=== PATIENT | male | born 1950 | race Caucasian/White ===

== ENCOUNTER 2021-02-28 15:25 | Emergency (ER) | payer MEDICARE, SELFPAY ==
--- NOTE | ~2021-02-28 | CT_ITS ---
EXAMINATION: CT abdomen pelvis w con DATE: 02/28/2021 20:33 INDICATION: Left-sided abdominal pain for 3 days TECHNIQUE: Computed tomography (CT) of the abdomen and pelvis was performed with 100 cc Omnipaque 350 intravenous contrast. Automated exposure control and iterative reconstruction technique were employe d. Exam dose: 611.96 mGy-cm total exam DLP. COMPARISON: 02/19/2017 CT abdomen pelvis FINDINGS: Right lower lobe calcified pulmonary granuloma. There is discoid atelectasis and/or scarrin g at the lung bases. Normal heart size. No pericardial or pleural effusion. Status post gastric pull-through surgery; history of esophageal cancer. Multiple scattered hepatic cysts, the largest 2.5 cm. No bile duct or pancreatic duct dilatation. The gallbladder is present. No gallbladder wall thickening or pericholecystic fluid or fat stranding. No pancreatic mass lesion or calcification or pancreatic duct dilatation. Normal splenic size. Normal morphology of the adrenal glands. Multiple scattered bilateral renal cysts, largest measuring 1.6 cm. There is an approximately 5 x 9 mm left ureteral calculus at the L4-5 level with proximal moderate le ft hydroureteronephrosis. Scattered bilateral nonobstructing renal calculi, largest situated in the lower pole left kidney, ryann suring approximately 5.5 mm. There is scarring or possibly resection of the lower pole of the left kidney. There is moderate prostate enlargement and multiple prostate calcifications. The urinary bladder is u nremarkable. Bilateral fat-containing inguinal hernias. There is atherosclerotic calcification of the abdominal aorta and iliac arteries, without aneurysm. N o intraperitoneal or retroperitoneal or pelvic mass lesion or adenopathy or ascites. Normal appendix. There are some fluid distended jejunal segments measuring up to approximately 2.9 cm maximal diameter , which may represent mild adynamic ileus secondary to the left ureteral calculus; differential diagn osis includes less likely enteritis or partial mild small bowel obstruction. Diverticulosis of the colon; no CT evidence of diverticulitis. No bowel obstruction or intraperitonea l free air. Mild supraumbilical fat-containing ventral abdominal wall hernias. Hemangioma of T12 vertebral body. No suspicious osteolytic or osteoblastic lesions are identified. IMPRESSION: 5 x 9 mm left ureteral calculus at L4-5 level with proximal moderate left hydroureterone phrosis Scattered bilateral nonobstructing renal calculi Bilateral renal cysts Scarring or postsurgical change at the lower pole left kidney; recommend clinical correlation Scattered hepatic cysts Status post gastric pull-through surgery for history of esophageal cancer Diverticulosis of the colon; no CT evidence of diverticulitis Bilateral fat-containing inguinal hernias Reviewed, dictated and finalized at [facility]. Reviewed, dictated and finalized at [facility]. IMPRESSION: 5 x 9 mm left ureteral calculus at L4-5 level with proximal modera te left hydroureteronephrosis Scattered bilateral nonobstructing renal calculi Bilateral renal cysts Scarring or postsurgical change at the lower pole left kidney; recommend clinic al correlation Scattered hepatic cysts Status post gastric pull-through surgery for history of esophageal cancer Diverticulosis of the colon; no CT evidence of diverticulitis Bilateral fat-containing inguinal hernias
--- NOTE | ~2021-02-28 | XR_ITS ---
XR abdomen/kub 1V DATE: 02/28/2021 22:01 INDICATION: Kidney stone TECHNIQUE: AP projection, 2 views COMPARISON: 02/28/2021 CT abdomen pelvis FINDINGS: There is left hydronephrosis and hydroureter to the L4-5 level due to the left renal calcul us documented on 02/28/2021 CT abdomen pelvis examination shortly prior to this examination. No right hydroureteronephrosis. The urinary bladder appears unremarkable. No bowel obstruction. The psoas shadows are intact. Postoperative changes of the lower thorax and upper abdomen. IMPRESSION: Left ureteral partial obstruction at L4-5 due to calculus Reviewed, dictated and finalized at [facility] Reviewed, dictated and finalized at [facility].
[2021-02-28 15:29] VITALS: BP 120/67; PULSE 69; RESP 18; TEMP 36.6; O2SAT 99
[2021-02-28 15:48] LABS: Basophils Percent Auto 0.3 % (0.2-1.2); Eosinophils Absolute Auto 0.1 K/mm3 (0-0.3); Eosinophils Percent Auto 0.4 % (0-4.4); Hematocrit 43.1 % (42.0-52.0); Hemoglobin 13.9 g/dL (14.0-18.0); Immature Granulocyte Absolute 0.05 K/mm3 (0.00-0.031); Immature Granulocyte Percent A 0.3 % (0-0.5); Lymphocytes Absolute Auto 1.01 K/mm3 (0.9-3.2); Mean Corpuscular HGB Conc 32.3 g/dl (32-36); Mean Corpuscular Hemoglobin 30.2 pg (26-34); Mean Corpuscular Volume 93.7 fl (80-100); Mean Platelet Volume 10.7 fl (7.4-10.4); Monocytes Percent Auto 6.6 % (2.6-8.5); Neutrophils Absolute Auto 12.4 K/mm3 (1.3-6.7); Neutrophils Percent Auto 85.4 % (45.5-73.1); Platelet Count Result 224 k/mm3 (150-375); Red Cell Distribution Width 12.8 % (11.5-14.5); White Blood Count 14.5 K/mm3 (4.5-10.0)
[2021-02-28 16:00] LABS: Alanine Aminotransferase 25 U/L (4-50); Albumin Level 4.3 g/dL (3.5-5.1); Alkaline Phosphatase 134 U/L (38-126); Anion Gap 10 mmol/L (8-16); Aspartate Amino Transferase 29 U/L (17-59); Bilirubin,Total 0.6 mg/dL (0.2-1.3); Blood Urea Nitrogen 17 mg/dL (9-20); Calcium 9.7 mg/dL (8.4-10.2); Carbon Dioxide 22 mmol/L (22-30); Chloride 100 mmol/L (98-107); Estimated CRCL calculation 40 ml/min; Estimated Glomerular Filt Rate 43; Glucose 129 mg/dL (65-110); Lipase 129 U/L (23-300); Sodium 132 mmol/L (137-145)
[2021-02-28 18:30] VITALS: BP 137/80; PULSE 70; O2SAT 94
[2021-02-28 19:12] LABS: Add Urine Microscopic? YES; Appearance Urine Clear (Clear); Bilirubin Urine Negative (Negative); Blood Urine 1+ (Negative); Color Urine Yellow (Yellow); Glucose Urine UA Negative (Negative); Ketones Urine 1+ mg/dL (Negative); Leukocyte Esterase Ur Negative LEU/UL (Negative); Nitrate Urine Negative (Negative); Protein Urine 1+ mg/dL (Negative); Specific Grav Ur 1.024 (1.001-1.035); Urobilinogen Urine Negative mg/dL (<2.0)
[2021-02-28 19:35] VITALS: BP 151/90; PULSE 75; RESP 18; O2SAT 99
[2021-02-28 19:46] LABS: Calcium Oxalate Crystals Urine Present /hpf
[2021-02-28 19:47] LABS: RBC Urine 0-2 /hpf (0-2); WBC Urine 0-3 /hpf
[2021-02-28 20:44] VITALS: BP 121/81; PULSE 63; RESP 15; O2SAT 99
--- NOTE | 2021-02-28 20:56 | ED.GENADULT ---
HPI - General Adult General Chief complaint: Abdominal Pain Stated complaint: poss kidney stone Time Seen by Provider: 02/28/21 19:40 Source: patient History of Present Illness HPI narrative: Patient is a 70 y/o male complaining of intermittent left upper abdominal pain starting 2 days ago. He describes his pain as a cramping pain and rates it as 5-7/10 when it hits. There is no known alleviating or exacerbating factor. His pain radiates to his left pain. He has no pain at this time. He has some nausea, but no vomiting or diarrhea. He has no dysuria or hematuria. Related Data Home Medications Medication Instructions Recorded Confirmed atorvastatin 02/28/21 metoprolol succinate PO 02/28/21 quinapril mg 02/28/21 Allergies Allergy/AdvReac Type Severity Reaction Status Date / Time No Known Allergies Allergy Verified 02/28/21 19:38 Review of Systems Constitutional: Constitutional: Denies chills, Denies fever(s), Denies headache(s) and Denies weakness Eyes: Eyes: Denies blurry vision ENT: Denies headache(s) and Denies neck pain Cardiovascular: Cardiovascular: Denies chest pain and Denies dyspnea Respiratory: Respiratory: Denies cough and Denies dyspnea Gastrointestinal: Gastrointestinal: Reports abdominal pain, Denies diarrhea, Reports nausea and Denies vomiting Genitourinary: Genitourinary: Denies hematuria and Denies dysuria Musculoskeletal: Musculoskeletal: Reports back pain and Denies neck pain Neurologic: Denies headache(s) and Denies weakness PMFSH Social History Social History Gender identity (if verbalized by the patient): Male Exam Const: General: no acute distress and well developed Orientation/consciousness: oriented to person, oriented to place, oriented to time and patient oriented x3 HENMT: Head: normocephalic Ears: external ears normal General nose exam: Normal external nose present Eyes: General: appearance normal, both eyes and all related structures Conjunctivae: conjunctivae normal Neck: Neck: normal visual inspection and full ROM Chest: Chest palpation & inspection: normal inspection of the chest and no tenderness Resp: Effort & Inspection: normal respiratory effort Auscultation: clear to auscultation bilaterally Cardio: Rate: regular rate Rhythm: regular rhythm GI: GI Palp: No abdominal tenderness and Yes Soft to palpation Skin: General skin exam: normal color and turgor normal Neuro: General: oriented to person, oriented to place, oriented to time and patient oriented x3 Cognition (Neuro): normal cognition Extrem: General: normal to inspection, full ROM and no pedal edema Psych: Appearance: grossly normal Mental Status: mental status grossly normal Affect: normal affect Course Reevaluation(s) Reevaluation #1: Rechecked. Patient feels well. He states that he has no pain at this time. Date: 02/28/21 Time: 21:46 Consultations Consultation #1: Discussed with Dr. Campos, who agrees with plan for discharge. He recommends empirical antibiotic for 3 days for elevated WBC. Date: 02/28/21 Time: 21:54 Vital Signs Vital signs: Vital Signs Temperature 36.6 C 02/28/21 15:29 Pulse Rate 69 02/28/21 15:29 Respiratory Rate 18 02/28/21 15:29 Blood Pressure 120/67 02/28/21 15:29 Pulse Oximetry 99 02/28/21 15:29 Temperature 36.6 C 02/28/21 15:29 Pulse Rate 71 02/28/21 22:35 Respiratory Rate 16 02/28/21 22:35 Blood Pressure 143/71 H 02/28/21 22:35 Pulse Oximetry 100 02/28/21 22:35 Medical Decision Making Vital Signs Vital Signs: Vital Signs Temperature 36.6 C 02/28/21 15:29 Pulse Rate 69 02/28/21 15:29 Respiratory Rate 18 02/28/21 15:29 Blood Pressure 120/67 02/28/21 15:29 Pulse Oximetry 99 02/28/21 15:29 Temperature 36.6 C 02/28/21 15:29 Pulse Rate 71 02/28/21 22:35 Respiratory Rate 16 02/28/21 22:35 Blood Pressure 143/71 H 02/28/21 22:35 Pulse Oximetry 100 02/28/21 22:35 Lab Data
[2021-02-28] MEDS: HYDROcodone/acetaminophen (*CRX) 5-325 MG TABLET 1 TAB PO (22:32)
[2021-02-28 22:35] VITALS: BP 143/71; PULSE 71; RESP 16; O2SAT 100
== END 2021-02-28 22:37 | disposition home or self-care (01) ==
PROVIDERS: Emergency Medicine; Emergency Provider Emergency Medicine; PCP Family Medicine
DX: N13.2 Hydronephrosis with renal and ureteral calculous obstruction (principal); N18.9 Chronic kidney disease, unspecified; Z85.01 Personal history of malignant neoplasm of esophagus; N28.1 Cyst of kidney, acquired; K76.89 Other specified diseases of liver; K57.90 Diverticulosis of intestine, part unspecified, without perforation or abscess without bleeding; K40.90 Unilateral inguinal hernia, without obstruction or gangrene, not specified as recurrent
CPT/HCPCS: 36415; 74018; 74177; 80053; 81001; 83690; 85025; 99284; A9270; Q9967

== ENCOUNTER 2021-03-08 12:10 | Outpatient (CLI) | payer MEDICARE, SELFPAY ==
--- NOTE | ~2021-03-08 | XR_ITS ---
EXAMINATION: XR abdomen/kub 1V EXAM DATE: 03/08/2021 12:26 INDICATION: Kidney stones, left flank pain. History esophageal cancer. TECHNIQUE: Frontal projection(s) of the abdomen for interpretation. Comparison is made to prior exami nation from 02/28/2021. FINDINGS: Previous exam demonstrated mild to moderate left hydroureteronephrosis to the pelvic inlet . There is a density projecting over the left side of the sacrum, uncertain whether or not this is th e stone previously identified on CT. Measures about 5 mm. Similar sized density projecting over lower pole of the left kidney. Moderate amount of colonic stool, nonobstructive bowel gas pattern. The saundra inal surgical clips. IMPRESSION: 1. Left nephrolithiasis. 2. Possible identification left mid ureteral stone. Reviewed, dictated and finalized at location [facility].
== END 2021-03-08 12:11 | disposition home or self-care (01) ==
PROVIDERS: PCP Family Medicine; Visit Provider Urology
DX: N20.0 Calculus of kidney (principal); C15.9 Malignant neoplasm of esophagus, unspecified; R10.9 Unspecified abdominal pain
CPT/HCPCS: 74018

== ENCOUNTER 2021-03-08 13:37 | Day surgery (SDC) | payer MEDICARE, SELFPAY ==
[2021-03-08] VITALS (15 sets, daily range): BP systolic 116–148; BP diastolic 60–82; PULSE 58–90; RESP 12–22; TEMP 35.5–36.7; O2SAT 98–100
--- NOTE | ~2021-03-08 | CT_ITS ---
EXAMINATION: CT abdomen pelvis wo con DATE: 03/08/2021 16:11 INDICATION: Left flank pain. TECHNIQUE: Computed tomography (CT) of the abdomen and pelvis was performed without intravenous contr ast. Automated exposure control and iterative reconstruction technique were employed. The dose-length product was 183.03 mGy-cm. COMPARISON: CT abdomen and pelvis 02/28/2021 FINDINGS: The visualized portions of the lung bases demonstrate mild atelectasis. No pleural effusion . There are changes of esophagectomy and gastric pull-through procedure. There is a 2.6 cm cyst in th e liver. Calcifications in the spleen are consistent with old granulomatous disease. The gallbladder, spleen, and pancreas are normal. There is cortical thinning of the kidneys. There are two 1-[address] aliya in right kidney. There are cysts in left kidney measuring up to 16 mm. There are [address] ones in left kidney. There is mild left hydronephrosis and hydroureter. There is a 6 mm stone in left ureter where it crosses the iliac vessels. There is diverticulosis of the colon without evidence of diverticulitis. The appendix is normal. There are no dilated loops of bowel. There are no pathologica lly enlarged lymph nodes. There is no free intraperitoneal fluid. There is a right inguinal hernia co ntaining fat. There is a hemangioma in T12 vertebral body. There is mild thoracolumbar spondylosis. IMPRESSION: 1. 6 mm stone in mid left ureter with mild left hydronephrosis and proximal hydroureter. 2. Bilateral nonobstructing kidney stones. Reviewed, dictated and finalized at location [facility]. IMPRESSION: 1. 6 mm stone in mid left ureter with mild left hydronephrosis and proximal hyd roureter. 2. Bilateral nonobstructing kidney stones.
--- NOTE | 2021-03-08 14:04 | ECG_ITS ---
Measurements Intervals Whittaker Rate: 71 P: 67 IN: 156 QRS: 20 QRSD: 104 T: 35 QT: 397 QTc: 432 Interpretive Statements SINUS RHYTHM DELAYED PRECORDIAL R/S TRANSITION VOLTAGE CRITERIA FOR LVH BORDERLINE ST ABNORMALITY- INFERIOR LEADS BORDERLINE ECG Electronically Signed On 03-08-2021 16:37:02 CDT by Charlie Cervantes D.O.
[2021-03-08 14:17] LABS: Basophils Absolute Auto 0.1 K/mm3 (0.0-0.1); Basophils Percent Auto 0.4 % (0.2-1.2); Eosinophils Percent Auto 0.1 % (0-4.4); Hematocrit 44.3 % (42.0-52.0); Hemoglobin 14.6 g/dL (14.0-18.0); Immature Granulocyte Absolute 0.07 K/mm3 (0.00-0.031); Immature Granulocyte Percent A 0.5 % (0-0.5); Lymphocytes Absolute Auto 0.63 K/mm3 (0.9-3.2); Lymphocytes Percent Auto 4.6 % (18.3-44.2); Mean Corpuscular Hemoglobin 30.2 pg (26-34); Mean Corpuscular Volume 91.7 fl (80-100); Mean Platelet Volume 10.9 fl (7.4-10.4); Monocytes Absolute Auto 0.8 K/mm3 (0.1-0.6); Monocytes Percent Auto 5.9 % (2.6-8.5); Neutrophils Absolute Auto 12.2 K/mm3 (1.3-6.7); Neutrophils Percent Auto 88.5 % (45.5-73.1); Platelet Count Result 275 k/mm3 (150-375); Red Blood Count 4.83 M/mm3 (4.6-6.20); Red Cell Distribution Width 12.4 % (11.5-14.5); White Blood Count 13.8 K/mm3 (4.5-10.0)
[2021-03-08 14:34] LABS: Anion Gap 11 mmol/L (8-16); Blood Urea Nitrogen 20 mg/dL (9-20); Calcium 9.4 mg/dL (8.4-10.2); Carbon Dioxide 25 mmol/L (22-30); Chloride 99 mmol/L (98-107); Estimated Glomerular Filt Rate 46; Glucose 140 mg/dL (65-110); Potassium 4.5 mmol/L (3.4-5.0); Sodium 135 mmol/L (137-145)
[2021-03-08 14:36] LABS: Ovalocytes 1+ (NORMAL); Platelet Estimate Adequate (Adequate)
--- NOTE | 2021-03-08 16:01 | PC.NURSE ---
Called and spoke to Akosua in lab to add on CMP, [id number]
[2021-03-08] MEDS: HYDROmorphone HCL INJ (*CRX) 1 MG/ML SYR 0.5 MG IV PUSH (16:04)
[2021-03-08] MEDS: ONDANSETRON INJ 4 MG/2 ML VIAL IV PUSH (16:05)
--- NOTE | 2021-03-08 16:14 | ED.MALEGU ---
HPI - Male Genitourinary General Chief complaint: Urogenital-Male Stated complaint: kidney stone Time Seen by Provider: 03/08/21 15:48 Source: patient Mode of arrival: ambulatory Limitations: no limitations History of Present Illness HPI Narrative: Patient is 70 years old referred to the emergency room by his urologist for left flank pain started 11 days ago, was seen by urologist 2 hours ago, KUB was done, patient was scheduled for surgery today, came to the emergency room for pain management. Patient was retching, uncomfortable. Patient is fully vaccinated for COVID-19. The above symptom associated with nausea and intermittent vomiting. Patient had CT scan of the abdomen and pelvis 8 days ago which showed 5 x 9 mm left ureteral calculus at L4-5 level with proximal moderate left hydroureteronephrosis Related Data Home Medications Medication Instructions Recorded Confirmed atorvastatin 02/28/21 metoprolol succinate PO 02/28/21 quinapril mg 02/28/21 Allergies Allergy/AdvReac Type Severity Reaction Status Date / Time No Known Allergies Allergy Verified 02/28/21 19:38 Review of Systems Review of Systems: CONSTITUTIONAL: Denies fever, chills, or sweats. EYES: Denies visual changes, redness, or discharge. ENT: Denies rhinorrhea, congestion, sore throat, or otalgia. CARDIOVASCULAR: Denies chest pain, palpitations, or edema. RESPIRATORY: Denies cough or dyspnea. GASTROINTESTINAL: Denies abdominal pain, nausea, vomiting, or diarrhea. GENITOURINARY: Denies dysuria or hematuria. SKIN: Denies rash or itching. MUSCULOSKELETAL: Denies back pain, joint pain, or myalgia. NEUROLOGIC: Denies headache, numbness, or weakness. PSYCHIATRIC: Denies anxiety or depression. PMFSH Past Medical History Medical History Hyperlipidemia Hypertension Social History Social History Gender identity (if verbalized by the patient): Male Exam Narrative: General appearance: Well-developed, well-nourished Skin: Normal color Head: Normocephalic, nontraumatic Eyes: Clear conjunctiva ENT: Oropharynx normal, ears normal, nose normal Neck: Supple, nontender Chest and respiratory: Airway patent, no respiratory distress, no accessory muscle use Heart: Regular rate/rhythm Abdomen: Left flank tenderness Vascular: Normal peripheral pulses, normal capillary refill. Musculoskeletal: Normal range of motion, nontender back Neurologic: Alert and oriented ?3, ADMINISTRATIVE TECH is normal as tested, no gross motor deficit Course Course Emergency Course: Stable Vital Signs Vital signs: Vital Signs Temperature 35.5 C L 03/08/21 13:52 Pulse Rate 90 03/08/21 13:52 Respiratory Rate 22 H 03/08/21 13:52 Blood Pressure 142/75 H 03/08/21 13:52 Pulse Oximetry 100 03/08/21 13:52 Temperature 36.7 C 03/08/21 15:41 Pulse Rate 78 03/08/21 15:41 Respiratory Rate 18 03/08/21 15:41 Blood Pressure 126/76 03/08/21 15:41 Pulse Oximetry 99 03/08/21 15:41 MDM - Male Genitourinary MDM Narrative Medical decision making narrative: Patient is going to the OR for kidney stone removal Differential Diagnosis Differential diagnosis: Likely urinary tract infection Lab Data Result diagrams: 03/08/21 14:01 03/08/21 14:01 Labs: Lab Results 03/08/21 03/08/21 Range/Units 14:01 14:01 WBC 13.8 H (4.5-10.0) K/mm3 RBC 4.83 (4.6-6.20) M/mm3 Hgb 14.6 (14.0-18.0) g/dL Hct 44.3 (42.0-52.0) % MCV 91.7 (80-100) fl MCH 30.2 (26-34) pg MCHC 33.0 (32-36) g/dl RDW 12.4 (11.5-14.5) % Plt Count 275 (150-375)
--- NOTE | 2021-03-08 16:19 | P.HP_ITS ---
History of Present Illness History of Present Illness Consent: Risks, benefits, and alternatives have been discussed and questions answered. Patient agrees to proceed with procedure. Chief complaint: kidney stone Narrative: Melvin Quan is a 70 year old male with a known history of urolithiasis who was in the ER week ago with left renal colic. CT imaging revealed a obstructing 4-5 mm left mid ureteral calculus. He was discharged in did not seek follow-up until today when his pain recurred. A some in the office briefly where he was in severe pain with nausea and vomiting. After stabilization in the ER he is now scheduled for left endoscopic extraction of his left ureteral stone. Follow-up KUB imaging shows it is now on likely over the sacrum. Review of Systems Cardiovascular: Cardiovascular: Denies chest pain, Denies lightheadedness, Denies palpitations and Denies dyspnea Respiratory: Respiratory: Denies dyspnea Gastrointestinal: Gastrointestinal: Denies diarrhea, Denies nausea and Denies vomiting Genitourinary: Genitourinary: Denies hematuria and Denies dysuria Endocrine: Endocrine: Denies palpitations PMF Past Medical History Medical History Hyperlipidemia Hypertension Social History Social History Gender identity (if verbalized by the patient): Male Meds Home Medications and Allergies Home Medications Medication Instructions Recorded Confirmed Type atorvastatin 02/28/21 History ciprofloxacin HCl 500 mg PO Q12H #6 tablet 02/28/21 Rx hydrocodone-acetaminophen 1 tablet PO Q8H PRN #15 tablet 02/28/21 Rx metoprolol succinate PO 02/28/21 History quinapril mg 02/28/21 History tamsulosin [Flomax] 0.4 mg PO DAILY #10 cap 02/28/21 Rx Allergies Allergy/AdvReac Type Severity Reaction Status Date / Time No Known Allergies Allergy Verified 02/28/21 19:38 Vital Signs Vital Signs - 24 hr 03/08/21 13:52 03/08/21 15:25 03/08/21 15:26 Temperature 96 F L Pulse Rate 90 Respiratory Rate 22 H Blood Pressure 142/75 H 148/81 H Pulse Oximetry 100 98 03/08/21 15:30 03/08/21 15:32 03/08/21 15:41 Temperature 98.0 F Pulse Rate 78 Respiratory Rate 18 Blood Pressure 121/60 126/76 Pulse Oximetry 100 99 99 Exam Const: General: no acute distress Resp: Effort & Inspection: normal respiratory effort GI: Inspection: non-distended GI Palp: No abdominal tenderness and No Guarding due to palpation present (GI) Auscultation: normal bowel sounds Assessment and Plan Assessment and plan (1) Ureterolithiasis: Code(s): N20.1 - Calculus of ureter Status: Acute Assessment and Plan: * Cystoscopy, left ureteroscopy with stone extraction, possible laser lithotripsy and possible stent placement
--- NOTE | 2021-03-08 16:32 | WPDHPUPDATE1 ---
History and Physical Update Update Date/Time: 03/08/21 16:32 History and Physical has been reviewed, including an updated exam of the patient. There are NO changes in the patient's condition. Risks, benefits, and alternatives have been discussed and questions answered. Patient agrees to proceed with procedure.
--- NOTE | 2021-03-08 16:41 | WPDANESEPPF ---
Anes - Initial Pre Proc Eval Procedure: Operation Date: 03/08/21 15:00 Proposed Procedures p Cystoscopy, Left Uteroscopy, Left Retrograde Pyelogram, Left Stone Extraction, Possible Left Stent Placement, - John Barry MD s Possible Holmium Laser Procedure - John Barry MD Date/Time: 03/08/21 16:41 Surgeon: John Barry MD Pre Op Diagnosis: kidney stone Patient Data Age: 70 Gender: M Height: Weight: Last Vital Signs Temp 36.7 C 03/08/21 15:41 Pulse 72 03/08/21 16:33 Resp 18 03/08/21 16:33 BP 142/78 H 03/08/21 16:33 Pulse Ox 98 03/08/21 16:33 Allergies Allergy/AdvReac Type Severity Reaction Status Date / Time No Known Allergies Allergy Verified 02/28/21 19:38 Home Medications Medication Instructions Recorded Confirmed Type atorvastatin 02/28/21 History ciprofloxacin HCl 500 mg PO Q12H #6 tablet 02/28/21 Rx hydrocodone-acetaminophen 1 tablet PO Q8H PRN #15 tablet 02/28/21 Rx metoprolol succinate PO 02/28/21 History quinapril mg 02/28/21 History tamsulosin [Flomax] 0.4 mg PO DAILY #10 cap 02/28/21 Rx Laboratory Tests 03/08/21 03/08/21 14:01 14:01 WBC 13.8 K/mm3 H K/mm3 (4.5-10.0) RBC 4.83 M/mm3 M/mm3 (4.6-6.20) Hgb 14.6 g/dL g/dL (14.0-18.0) Hct 44.3 % % (42.0-52.0) MCV 91.7 fl fl (80-100) MCH 30.2 pg pg (26-34) MCHC 33.0 g/dl g/dl (32-36) RDW 12.4 % % (11.5-14.5) Plt Count 275 k/mm3 k/mm3 (150-375) MPV 10.9 fl H fl (7.4-10.4) Immature Gran % (Auto) 0.5 % % (0-0.5) Neut % (Auto) 88.5 % H % (45.5-73.1) Lymph % (Auto) 4.6 % L % (18.3-44.2) Coos % (Auto) 5.9 % % (2.6-8.5) Eos % (Auto) 0.1 % % (0-4.4) Baso % (Auto) 0.4 % % (0.2-1.2) Lymph # (Auto) 0.63 K/mm3 L K/mm3 (0.9-3.2) Coos # (Auto) 0.8 K/mm3 H K/mm3 (0.1-0.6) Eos # (Auto) 0.0 K/mm3 K/mm3 (0-0.3) Baso # (Auto) 0.1 K/mm3 K/mm3 (0.0-0.1) Abs Immat Gran (auto) 0.07 K/mm3 H K/mm3 (0.00-0.031) Absolute Neuts (auto) 12.2 K/mm3 H K/mm3 (1.3-6.7) Absolute Nucleated RBC 0.0 K/mm3 K/mm3 (0.0-0.012) Nucleated RBC % 0.0 % % (0.0-0.2) Platelet Estimate Adequate (Adequate) Ovalocytes 1+ (NORMAL) Sodium 135 mmol/L L mmol/L (137-145) Potassium 4.5 mmol/L mmol/L (3.4-5.0) Chloride 99 mmol/L mmol/L (98-107) Carbon Dioxide 25 mmol/L mmol/L (22-30) Anion Gap 11 mmol/L mmol/L (8-16) BUN 20 mg/dL mg/dL (9-20) Creatinine 1.50 mg/dL H mg/dL (0.7-1.3) Estim Creat Clear Calc Not Reportable Estimated GFR 46 L (59 - ) Glucose 140 mg/dL H mg/dL (65-110) Calcium 9.4 mg/dL mg/dL (8.4-10.2) Patient hx anesthesia problems: none Family hx anesthesia problems: none [facility] Past Medical History Medical History Hyperlipidemia Hypertension Social History Social History Gender identity (if verbalized by the patient): Male Anes - Evalphonse Final PreProcedure Day of Procedure 03/08/21 16:41 Patient weight: overweight Heart: regular rate and rhythm Lungs: clear to auscultation and normal air movement Airway: Mallampati scale class II Neurological: alert and oriented Last oral intake: >/= 8 hours ASA classification: II Emergent: no Anesthetic plan: proceed Anesthesia type and monitoring: general ETT Informed Consent: The patient's anesthetic plan and its attendant risks and benefits were discussed with the patient/family/POA. Questions were solicited and answers provided to the satisfaction of the patient/family/POA.
[2021-03-08] MEDS: ceFAZolin 2 GM/D5W 50 ML 2 GM/50 ML BAG IVPB (16:48)
[2021-03-08] MEDS: LACTATED RINGERS 1,000 ML 30 ML IV CONT (16:51)
[2021-03-08] MEDS: KETOROLAC 30 MG/ML VIAL (*BKC) IV PUSH (17:16)
[2021-03-08] MEDS: LIDOCAINE HCL 2% GEL UROJET 10 ML PKG MUCOUS MEM (17:20)
--- NOTE | 2021-03-08 17:29 | P.OP_ITS ---
Procedure Note - Detailed Date of Procedure 03/08/21 Pre-op Diagnosis Left ureteral stone Post-op Diagnosis same Procedure Performed Cystoscopy, left ureteroscopy with laser lithotripsy, stone extraction, retrograde pyelogram and stent placement Surgeon John Barry MD Anesthesia general Description of Procedure The patient was brought to the operative suite where he is prepped and draped in a routine sterile fashion while in the dorsal lithotomy position after the uneventful induction of a general LMA anesthetic. A 19F rigid cystoscope was placed in the bladder. There are no urethral strictures. His prostatic urethra measures, approximately, 1.5cm with no median lobe enlargement. The bladder mu cosa was endoscopically normal without hyperemia or neoplasm. There was a single, orthotopic ureteral orifice bilaterally. A 0.035 glidewire was advanced into the left renal pelvis under fluoroscopy. The distal ureter was dilated with an 8F/10F ureteral dilator. Ureteroscopy was undertaken with a short tapered semi-rigid ureteroscope. During ureteroscopy I fractured the stone into smaller pieces using a 273 micron Holmium laser fiber with the Holmium laser. I was able to then extract the stone pieces using a 1.9F Escape, disposable stone basket. Due to the extent of this manipulation I did place a 4.8F double-J ureteral stent. The proximal coil of the stent was confirmed to be in the renal pelvis and the distal coil in the bladder. The patient's bladder was emptied and he was taken to the recovery room having tolerated this procedure well. Estimated Blood Loss 0 Drains Yes Packing No Pathology yes Complications No immediate complications Condition stable Disposition PACU
== END 2021-03-08 19:12 | disposition home or self-care (01) ==
LOC: ANHED 16:21 → ANHSURGERY 16:21
PROVIDERS: Emergency Medicine; Emergency Provider Emergency Medicine; PCP Family Medicine; Visit Provider Urology
PROC: (CPT 52352; principal; 2021-03-08 15:00)
PROC: (CPT 52356; 2021-03-08 15:00)
DX: N20.1 Calculus of ureter (principal); Z87.442 Personal history of urinary calculi; I10 Essential (primary) hypertension; E78.5 Hyperlipidemia, unspecified
CPT/HCPCS: 52356; 36415; 74018; 74176; 80048; 82365; 85025; 88300; 93005; 96374; 96375; 99285; A9270; C1769; C1894; C2617; J0690; J1100; J1170; J1885; J2405; J2704; J3010; J7120; Q9966

== ENCOUNTER 2021-06-09 02:13 | Day surgery (SDC) | payer MEDICARE, SELFPAY ==
[2021-05-23 14:13] VITALS: BMI 23.3
[2021-06-09 10:12] VITALS: BP 132/83; PULSE 70; RESP 16; TEMP 36.4; O2SAT 98; BMI 23.6
[2021-06-09] MEDS: LACTATED RINGERS 1,000 ML 150 ML IV CONT (10:20)
--- NOTE | 2021-06-09 10:38 | WPDGICN ---
Assessment and Plan Assessment and plan (1) Family hx of colon cancer: Code(s): Z80.0 - Family history of malignant neoplasm of digestive organs Status: Acute Assessment and Plan: Patient's brother has had colon cancer. For this reason surveillance colonoscopy advised at 5 year intervals. (2) History of esophagectomy: Code(s): Z98.890 - Other specified postprocedural states; Z90.49 - Acquired absence of other specified parts of digestive tract Status: Acute Assessment and Plan: Patient has a history of esophageal cancer status post partial esophagectomy. Continued anti-reflux measures are encouraged at the present time given resection of the LES. GI Consult Note Consult date/time: 06/09/21 10:38 HPI: Melvin Quan is a 70 year old male Presents for screening colonoscopy. Patient reports his current weight appetite and bowel movements are normal. He denies abdominal pain. He has had no bleeding. Family history is significant his brother had colon cancer. Patient's presents today for neoplasia screening colonoscopy. Patient's past medical history is significant for esophageal cancer. He has undergone esophagectomy and has done well. He does have some degree of acid reflux. Currently felt to be stable . He makes frequent use of Gaviscon. Review of Systems Review of Systems: All systems reviewed & are unremarkable except as noted in HPI and below PMFSH Past Medical History Medical History Hyperlipidemia Hypertension Social History Social History Smoking status: Never smoker Alcohol intake: current Drinks per week: 6 Substance use type: does not use Living arrangements: with family Gender identity (if verbalized by the patient): Male Spiritual care concerns: No Meds Home Medications and Allergies Home Medications Medication Instructions Recorded Confirmed Type atorvastatin 30 mg PO HS 02/28/21 05/23/21 History metoprolol succinate 25 mg PO DAILY 02/28/21 05/23/21 History quinapril 20 mg PO DAILY 02/28/21 05/23/21 History aspirin [Adult Aspirin] 81 mg PO DAILY 05/23/21 05/23/21 History iron,carbonyl-vitamin C-FOS 1 tablet PO DAILY 05/23/21 05/23/21 History [Chewable Iron] lysine [L-Lysine] 500 mg PO DAILY 05/23/21 05/23/21 History multivit with min-folic acid 1 tablet PO DAILY 05/23/21 05/23/21 History [Adult Multivitamin Gummies] omega 2-kkw-lgf-fish oil [Fish Oil] 10,000 cap PO DAILY 05/23/21 05/23/21 History Allergies Allergy/AdvReac Type Severity Reaction Status Date / Time No Known Allergies Allergy Verified 05/23/21 14:26 Vital Signs Vital Signs - 24 hr 06/09/21 10:12 Temperature 97.6 F Pulse Rate 70 Respiratory Rate 16 Blood Pressure 132/83 Pulse Oximetry 98 Exam Narrative: Physical exam reveals patient be alert. Vital signs stable. HEENT exam is unremarkable. Patient is anicteric. Lungs are clear to auscultation and percussion. Heart is without murmur or extra sounds. Abdominal exam bowel sounds are present soft nontender with no organomegaly. Digital external rectal exam is normal.
--- NOTE | 2021-06-09 10:57 | P.PNAN_ITS ---
Anes - Initial Pre Proc Eval Procedure: Operation Date: 06/09/21 11:15 Proposed Procedures p Screening Colonoscopy - Travis Ahmadi MD Date/Time: 06/09/21 10:57 Surgeon: Travis Ahmadi MD Pre Op Diagnosis: family hx of colon ca Patient Data Age: 70 Gender: M Height: 1.78 m Weight: 74.6 kg Last Vital Signs Temp 97.6 F 06/09/21 10:12 Pulse 70 06/09/21 10:12 Resp 16 06/09/21 10:12 BP 132/83 06/09/21 10:12 Pulse Ox 98 06/09/21 10:12 Allergies Allergy/AdvReac Type Severity Reaction Status Date / Time No Known Allergies Allergy Verified 05/23/21 14:26 Home Medications Medication Instructions Recorded Confirmed Type atorvastatin 30 mg PO HS 02/28/21 05/23/21 History metoprolol succinate 25 mg PO DAILY 02/28/21 05/23/21 History quinapril 20 mg PO DAILY 02/28/21 05/23/21 History aspirin [Adult Aspirin] 81 mg PO DAILY 05/23/21 05/23/21 History iron,carbonyl-vitamin C-FOS 1 tablet PO DAILY 05/23/21 05/23/21 History [Chewable Iron] lysine [L-Lysine] 500 mg PO DAILY 05/23/21 05/23/21 History multivit with min-folic acid 1 tablet PO DAILY 05/23/21 05/23/21 History [Adult Multivitamin Gummies] omega 7-tby-cbs-fish oil [Fish Oil] 10,000 cap PO DAILY 05/23/21 05/23/21 His tory Patient hx anesthesia problems: none Family hx anesthesia problems: none Results Review: All pre-operative results and documents have been reviewed as part of the pre-operative evaluation. [facility] Past Medical History Medical History Hyperlipidemia Hypertension Social History Social History Smoking status: Never smoker Alcohol intake: current Drinks per week: 6 Substance use type: does not use Living arrangements: with family Gender identity (if verbalized by the patient): Male Spiritual care concerns: No Anes - Eval Final PreProcedure Day of Procedure 06/09/21 10:57 Patient weight: normal Heart: regular rate and rhythm Lungs: clear to auscultation Airway: Mallampati scale class II Neurological: alert and oriented Last oral intake: >/= 8 hours ASA classification: III Emergent: no Anesthetic plan: proceed Anesthesia type and monitoring: general GIVS and standard monitoring Results Review: All pre-operative results and documents have been reviewed as part of the pre-operative evaluation. Informed Consent: The patient's anesthetic plan and its attendant risks and benefits were discussed with the patient/family/POA. Questions were solicited and answers provided to the satisfaction of the patient/family/POA.
[2021-06-09 11:30] VITALS: BP 104/68; PULSE 79; RESP 17; O2SAT 98
[2021-06-09 11:40] VITALS: BP 104/68; PULSE 79; RESP 17; O2SAT 98
== END 2021-06-09 12:23 | disposition home or self-care (01) ==
PROVIDERS: PCP Family Medicine; Visit Provider Internal Medicine Gastroenterology
PROC: 0DJD8ZZ Inspection of Lower Intestinal Tract, Via Natural or Artificial Opening Endoscopic (ICD-10-PCS; CPT 45378; principal; 2021-06-09 11:15)
DX: Z12.11 Encounter for screening for malignant neoplasm of colon (principal); K64.8 Other hemorrhoids; Z80.0 Family history of malignant neoplasm of digestive organs; Z90.49 Acquired absence of other specified parts of digestive tract; Z85.01 Personal history of malignant neoplasm of esophagus; I10 Essential (primary) hypertension; E78.5 Hyperlipidemia, unspecified; Z79.82 Long term (current) use of aspirin
CPT/HCPCS: G0105; J2704; J7120

== ENCOUNTER 2021-10-10 10:06 | Outpatient (CLI) | payer MEDICARE, SELFPAY ==
--- NOTE | ~2021-10-10 | XR_ITS ---
EXAMINATION: XR abdomen/kub 1V DATE: 10/10/2021 10:23 INDICATION: Bilateral kidney stones TECHNIQUE: A supine view of the abdomen on 2 radiographs was obtained. COMPARISON: KUB and CT dated 03/08/2021 FINDINGS: Linear atherosclerotic calcification versus phlebolith in the left hemipelvis. More subtle densities suspicious for renal stones projecting over the lower pole of the left kidney measuring 2 mm and of t he right renal hilum measuring 2 mm and 3 mm. Anastomotic suture line in the right abdomen. Several s urgical clips in the left upper quadrant and left side of the mediastinum on side a moderate-sized hi atal hernia. Calcified nodule at the right lung base consistent with old granulomatous disease. Heart size is normal. No dilated loops of bowel to suggest obstruction. IMPRESSION: 1. 2 and 3 mm densities suspicious projecting over both kidneys suspicious for nephrolithiasis. Reviewed, dictated and finalized at location B.
== END 2021-10-10 10:07 | disposition home or self-care (01) ==
PROVIDERS: PCP Family Medicine; Visit Provider Nurse Practitioner Adult Health
DX: N20.0 Calculus of kidney (principal)
CPT/HCPCS: 74018

== ENCOUNTER 2022-05-18 12:29 | Outpatient (CLI) | payer MEDICARE, SELFPAY ==
--- NOTE | ~2022-05-18 | CT_ITS ---
EXAMINATION: CT abdomen pelvis wo con DATE: 05/18/2022 12:55 INDICATION: Bilateral kidney stones. Right flank pain. TECHNIQUE: Computed tomography (CT) of the abdomen and pelvis was performed without intravenous contr ast. Automated exposure control and iterative reconstruction technique were employed. Exam dose: 183 .66 mGy-cm total exam DLP. COMPARISON: 10/10/2021 KUB 03/08/2021 CT abdomen pelvis FINDINGS: Bilateral lower lung discoid scarring. No basilar consolidation. Normal heart size. No pericardial or pleural effusion. There is a large hiatal hernia. Approximately 2.4 cm new 1.2 cm left hepatic cysts are again noted. No interval hepatic space-occupyi ng mass lesion. The gallbladder is present. No bile duct or pancreatic duct dilatation. No pancreatic mass lesion or calcification. Normal splenic size. Occasional splenic calcified granulomas. The adrenal glands are unremarkable. Approximately 2.5 mm nonobstructing mid right renal calculus. Moderate right hydroureteronephrosis secondary to approximately 5 x 10 mm calculus of distal right ur eter. Moderate diffuse urinary bladder wall thickness, possibly secondary to limited distention. Approximately 3 mm nonobstructing upper pole left renal calculus. Approximately 3.5 x 5.6 mm mid left renal nonobstructing calculus. There is some scarring and volume loss along the posterior lower pole of left kidney. No left urinary tract calculus or hydroureteronephrosis. There is evidence, calcification but no aneurysm of the abdominal aorta. No intraperitoneal or retrop eritoneal or pelvic mass lesion or adenopathy or ascites is detected. Normal appendix. There are numerous diverticula of the left colon, particularly sigmoid area no CT ev idence of diverticulitis. No bowel obstruction, bowel wall thickening, pneumatosis or intraperitoneal free air. Mild fat-containing right inguinal hernia. Benign hemangioma or T12 vertebral body. No suspicious osteolytic or osteoblastic lesions are noted. IMPRESSION: Approximately 5 x 10 mm obstructing distal right ureteral calculus with moderate proxima l right hydroureteronephrosis Mild bilateral nephrolithiasis Hepatic cyst Large hiatal hernia Diverticulosis of the colon Normal appendix Reviewed, dictated and finalized at Location A. Reviewed, dictated and finalized at location A. ERATURE INSPECTOR IMPRESSION: Approximately 5 x 10 mm obstructing distal right ureteral calculus with moderate proximal right hydroureteronephrosis Mild bilateral nephrolithiasis Hepatic cyst Large hiatal hernia Diverticulosis of the colon Normal appendix
--- NOTE | ~2022-05-18 | XR_ITS ---
EXAMINATION: XR abdomen/kub 1V DATE: 05/18/2022 12:52 INDICATION: Bilateral kidney stones. TECHNIQUE: A supine view of the abdomen on 2 radiographs was obtained. COMPARISON: CT abdomen and pelvis 05/18/2022 FINDINGS: There is an 8 mm stone in distal right ureter overlying the sacrum. There is a phlebolith i n left pelvis. There are no dilated loops of bowel. There are surgical clips in the chest and left up per quadrant. IMPRESSION: 1. 8 mm stone in distal right ureter. Reviewed, dictated and finalized at location A. EL HANDLE ASSEMBLER
== END 2022-05-18 12:30 | disposition home or self-care (01) ==
PROVIDERS: PCP Family Medicine; Visit Provider Nurse Practitioner Adult Health
DX: N13.2 Hydronephrosis with renal and ureteral calculous obstruction (principal); K76.89 Other specified diseases of liver; K44.9 Diaphragmatic hernia without obstruction or gangrene; K57.30 Diverticulosis of large intestine without perforation or abscess without bleeding
CPT/HCPCS: 74018; 74176

== ENCOUNTER 2022-05-22 17:15 | Outpatient (CLI) | payer MEDICARE, SELFPAY ==
--- NOTE | ~2022-05-22 | XR_ITS ---
EXAMINATION: XR abdomen/kub 1V DATE: 05/22/2022 17:40 INDICATION: Right ureteral stone. TECHNIQUE: A supine view of the abdomen on 2 radiographs was obtained. COMPARISON: CT abdomen and pelvis 05/18/2022 FINDINGS: There are no dilated loops of bowel. There is an 8 mm stone in distal right ureter. There i s a vascular calcification in left pelvis. Surgical clips overlie the chest and left upper quadrant. IMPRESSION: 1. 8 mm stone in distal right ureter. Reviewed, dictated and finalized at location A. INATION WORKER
== END 2022-05-22 17:16 | disposition home or self-care (01) ==
PROVIDERS: PCP Family Medicine; Visit Provider Nurse Practitioner Adult Health
DX: N20.1 Calculus of ureter (principal)
CPT/HCPCS: 74018

== ENCOUNTER 2022-05-26 02:40 | Day surgery (SDC) | payer MEDICARE, SELFPAY ==
[2022-05-25 09:43] VITALS: BMI 24.3
--- NOTE | 2022-05-25 09:51 | PC.NURSE ---
Report to the Outpatient Waiting Room, entrance under the green pavilion located off [facility], at time __1 PM on date __05/26/22 . Planned Procedure Time: ___3 PM . Time changes happen often and if your time is changed the preop area will call you the afternoon before. - You and your visitor will be asked to self-screen and do not enter if you have any COVID symptoms. - Only one visitor is requested with a max of two and NO children visitors are allowed at this time. - The patient visitor may be requested to leave or wait in car when not with patient due to distancing restrictions. - A mask is optional within the hospital. Patients may have clear liquids (water, carbonated beverages, clear teas, apple juice) until 3 hours prior to surgery (1200 NOON) with a maximum of 20 ounces. - No food from midnight until time of surgery - Infants may have breast milk until 4 hours before surgery, infant formula 6 hours prior to surgery. - Children will be allowed to drink immediately following surgery. If applicable, please bring a bottle or sippy cup to assist with drinking. Juice, water, soda, and popsicles are readily available. For infants on formula, please bring formula the day of surgery. Pacifiers are allowed. Take the following medications with a SIP of water the morning of surgery: __METOPROLOL__ Medications to discontinue per physician _PT STATES STOPPING ASPIRIN AND FISH OIL 05/24/[address] STONE'S INSTRUCTIONS__ Date to take last dose Please no make-up, nail amharic, hairspray, perfume, deodorant, or body powder the day of surgery. No jewelry (including any body piercings) or valuables the day of surgery, leave them at home. Please take a shower or bath the night before, or the morning of, surgery with an antibacterial soap. Wear comfortable, loose fitting clothing. Children are encouraged to wear pajamas. - Jewelry must be removed prior to entering the operating room. Rings and piercings that are not removed may be cut off. - The hospital will not accept responsibility for valuables. - Please leave all valuables, including medications, at home the day of surgery. If you are going home after surgery, a licensed commercial driver's license driver must drive you home. - NO public transportation without another adult if you receive anesthesia. - We recommend that an adult stay with you for 24 hours following discharge. - We also recommend that you do not drive, make important decision, drink alcoholic beverages, or take any drugs that were not prescribed by your health care provider for at least 24 hours after your discharge time. For Pediatric surgeries, we recommend two adults accompany the child home. Follow any additional instructions given to you from your surgeon. If you or anyone in your household have experienced Covid symptoms in the past week, please notify your surgeon or the nurse liaison at the phone number below for possible testing. Telephone instructions given to ___PT and asked if any additional questions and then verbalized understanding. Patient advised to call surgeon office or pre surgery nurse liaison [phone] if any additional questions.
--- NOTE | 2022-05-25 14:48 | WPDANESEPPF ---
Anes - Initial Pre Proc Eval Procedure: Operation Date: 05/26/22 13:30 Proposed Procedures p Cystoscopy, Right Ureteroscopy, Possible Right Retrograde Pyelogram, Possible Right Stone Extraction, Possible Right Stent Placement, Possible Holmium Laser - John Barry MD Date/Time: 05/25/22 14:48 Surgeon: John Barry MD Pre Op Diagnosis: right ureteral stone Patient Data Age: 71 Gender: M Height: 1.75 m Weight: 74.54 kg Allergies Allergy/AdvReac Type Severity Reaction Status Date / Time No Known Allergies Allergy Verified 05/26/22 12:00 Home Medications Medication Instructions Recorded Confirmed Type atorvastatin 20 mg tablet 30 mg PO HS 02/28/21 05/26/22 History metoprolol succinate 25 mg 25 mg PO DAILY 02/28/21 05/26/22 History tablet,extended release 24 hr quinapril 20 mg tablet 10 mg PO DAILY 02/28/21 05/26/22 History aspirin 81 mg tablet 81 mg PO DAILY 05/23/21 05/26/22 History iron,carbonyl 30 mg-vitamin C 10 1 tablet PO DAILY 05/23/21 05/26/22 History mg-FOS 25 mg chewable tablet (Chewable Iron) lysine 500 mg capsule 1,000 mg PO DAILY 05/23/21 05/26/22 History multivitamin with minerals-folic 1 tablet PO DAILY 05/23/21 05/26/22 History acid 200 mcg chewable tablet (Adult Multivitamin Gummies) omega 5-qxa-vqh-fish oil 1,000 mg 10,000 cap PO DAILY 05/23/21 05/26/22 History (120 mg-180 mg) capsule (Fish Oil) calcium carbonate 600 mg-vitamin 1 tablet PO DAILY 05/25/22 05/26/22 History D3 5 mcg (200 unit) tablet maggi seed oil-omega 3-6-9 1,000 mg 1 cap PO DAILY 05/25/22 05/26/22 History (580 mg) capsule cholecalciferol (vitamin D3) 50 50 mcg PO DAILY 05/25/22 05/26/22 History mcg/drop (2,000 unit/drop) oral drops coenzyme Q10 100 mg capsule 200 mg PO DAILY 05/25/22 05/26/22 History (CoQ-10) psyllium husk-calcium 1 gram-60 mg 1 cap PO DAILY 05/25/22 05/26/22 History capsule Patient hx anesthesia problems: none Family hx anesthesia problems: none Results Review: All pre-operative results and documents have been reviewed as part of the pre-operative evaluation. [facility] Past Medical History Medical History (Updated 05/25/22 @ 14:49 by Danny Peng MD) CAD (coronary artery disease) Esophageal cancer Hyperlipidemia Hypertension Surgical History Surgical History (Updated 05/25/22 @ 14:49 by Danny Peng MD) History of coronary artery stent placement Social History Social History Smoking status: Never smoker Second hand tobacco smoke exposure: No Alcohol intake: current Drinks per week: 3 Substance use: never Substance use type: does not use Living arrangements: alone Gender identity (if verbalized by the patient): Male Spiritual care concerns: No Anes - Eval Final PreProcedure Day of Procedure 05/25/22 14:48 Patient weight: normal Heart: regular rate and rhythm Lungs: clear to auscultation Airway: Mallampati scale class II Neurological: alert and oriented Last oral intake: >/= 8 hours ASA classification: III Emergent: no Anesthetic plan: proceed Anesthesia type and monitoring: general LMA and standard monitoring Results Review: All pre-operative results and documents have been reviewed as part of the pre-operative evaluation. Informed Consent: The patient's anesthetic plan and its attendant risks and benefits were discussed with the patient/family/POA. Questions were solicited and answers provided to the satisfaction of the patient/family/POA.
[2022-05-26] VITALS (8 sets, daily range): BP systolic 101–152; BP diastolic 67–84; PULSE 55–63; RESP 11–18; TEMP 36.3–36.5; O2SAT 97–100
--- NOTE | ~2022-05-26 | XR_ITS ---
EXAMINATION: XR stent kub - surgery DATE: 05/26/2022 14:08 INDICATION: Right internal ureteral stent placement TECHNIQUE: Fluoroscopic images from a right internal ureteral stent placement are submitted for wolfgang white 41 seconds of fluoroscopy time. 2 fluoroscopic images FINDINGS: There is a right double-J internal ureteral stent projecting in expected position, with proximal [place] loop at the level of the renal pelvis and distal loop in the pelvis within the bladder lumen. IMPRESSION: 1. Right internal ureteral stent placement. Please refer to real-time procedural findings for bernard schrader. Reviewed, dictated and finalized at location A. TRY BONER IMPRESSION: 1. Right internal ureteral stent placement. Please refer to real-time procedu ral findings for details.
--- NOTE | 2022-05-26 11:45 | ECG_ITS ---
Measurements Intervals [place] Rate: 60 P: 52 RI: 158 QRS: 11 QRSD: 104 T: 9 QT: 427 QTc: 427 Interpretive Statements SINUS RHYTHM BASELINE WANDER- II, III, AVF NORMAL ECG COMPARED TO ECG 03/08/2021 14:04:45 NO SIGNIFICANT CHANGES Electronically Signed On 05-26-2022 12:31:20 CONFECTIONERY MAKER by Charlie Cervantes D.O.
[2022-05-26] MEDS: LACTATED RINGERS 1,000 ML 30 ML IV CONT (12:19)
[2022-05-26 12:28] LABS: Hematocrit 38.6 % (42.0-52.0); Hemoglobin 12.6 g/dL (14.0-18.0)
--- NOTE | 2022-05-26 12:39 | WPDHPUPDATE1 ---
History and Physical Update Update Date/Time: 05/26/22 12:39 History and Physical has been reviewed, including an updated exam of the patient. There are NO changes in the patient's condition. Risks, benefits, and alternatives have been discussed and questions answered. Patient agrees to proceed with procedure.
[2022-05-26] MEDS: ceFAZolin 2 GM/D5W 50 ML 2 GM/50 ML BAG IVPB (13:37)
--- NOTE | 2022-05-26 14:07 | W.PM.PROC2 ---
Procedure Note - Detailed Date of Procedure 05/26/22 Pre-op Diagnosis Right ureteral stone Post-op Diagnosis Same Procedure Performed Cystoscopy, right ureteroscopy with laser lithotripsy, stone extraction and stent placement Surgeon John Barry MD Anesthesia General Description of Procedure The patient was brought to the operative suite where he is prepped and draped in a routine sterile fashion while in the dorsal lithotomy position after the uneventful induction of a general LMA anesthetic. A 19F rigid cystoscope was placed in the bladder. There are no urethral strictures. His prostatic urethra measures, approximately, 2.0cm with no median lobe enlargement. The bladder mucosa was endoscopically normal without hyperemia or neoplasm. There was a single, orthotopic ureteral orifice bilaterally. A 0.035 glidewire was advanced into the right renal pelvis under fluoroscopy. The distal ureter was dilated with an 8F/10F ureteral dilator. Ureteroscopy was undertaken with a short tapered semi-rigid ureteroscope During ureteroscopy I fractured the stone into smaller pieces using a 272 micron Holmium laser fiber with the Holmium laser. I was able to then extract the stone pieces using a 1.9F Escape, disposable stone basket. Due to the extent of this manipulation I did place a 4.8F double-J ureteral stent. The proximal coil of the stent was confirmed to be in the renal pelvis and the distal coil in the bladder. The patient's bladder was emptied and he was taken to the recovery room having tolerated this procedure well. Drains Yes Packing No Pathology Yes Complications No immediate complications Condition Stable
== END 2022-05-26 15:55 | disposition home or self-care (01) ==
PROVIDERS: Anesthesiology; PCP Family Medicine; Visit Provider Urology
PROC: (CPT 52352; principal; 2022-05-26 13:30)
DX: N20.1 Calculus of ureter (principal); I25.10 Atherosclerotic heart disease of native coronary artery without angina pectoris; I10 Essential (primary) hypertension; E78.5 Hyperlipidemia, unspecified; Z85.01 Personal history of malignant neoplasm of esophagus; Z95.5 Presence of coronary angioplasty implant and graft; Z79.82 Long term (current) use of aspirin
CPT/HCPCS: 52356; 36415; 82365; 85014; 85018; 88300; 93005; C1758; C1769; C1894; C2617; J0690; J1100; J2250; J2405; J2704; J3010; J7120

== ENCOUNTER 2022-06-19 12:46 | Outpatient (CLI) | payer MEDICARE, SELFPAY ==
[2022-06-19 13:41] LABS: Hematocrit 41.5 % (42.0-52.0); Hemoglobin 13.1 g/dL (14.0-18.0)
[2022-06-19 13:51] LABS: Prothrombin Time 13.1 Seconds (11.1-14.7)
[2022-06-19 13:52] LABS: Partial Thromboplastin Time 34.6 SECONDS (22.3-36.8)
[2022-06-19 13:54] LABS: Anion Gap 5 mmol/L (8-16); Blood Urea Nitrogen 16 mg/dL (9-20); Calcium 8.5 mg/dL (8.4-10.2); Carbon Dioxide 28 mmol/L (22-30); Chloride 99 mmol/L (98-107); Estimated Glomerular Filt Rate > 60; Glucose 105 mg/dL (65-110); Potassium 4.3 mmol/L (3.4-5.0); Sodium 132 mmol/L (137-145)
== END 2022-06-19 12:47 | disposition home or self-care (01) ==
PROVIDERS: Anesthesiology; PCP Family Medicine; Visit Provider Urology
DX: Z01.818 Encounter for other preprocedural examination (principal); N18.9 Chronic kidney disease, unspecified; D64.9 Anemia, unspecified; N20.1 Calculus of ureter
CPT/HCPCS: 36415; 80048; 85014; 85018; 85610; 85730; 87086

== ENCOUNTER 2022-06-22 00:05 | Day surgery (SDC) | payer MEDICARE, SELFPAY ==
[2022-06-19 10:12] VITALS: BMI 24.0
--- NOTE | 2022-06-19 10:38 | PC.NURSE ---
Addendum entered by Alicia Nassar RN 06/19/22 10:40: LEFT MESSAGE FOR DR STONE' REFRIGERATOR REPAIRMAN, DEVIKA, NOTING THAT PATIENT STARTED HOLDING ASPIRIN TODAY(HE TOOK 81MG THIS AM). WILL HOLD ASPIRIN AND ALL VITAMINS/SUPPLEMENTS UNTIL AFTER SURGERY ON 06/22/22. ALICIA NASSAR RN Original Note: Report to the Outpatient Waiting Room, entrance under the green pavilion located off [address], at time _11:00AM on date __06/22/22 . Planned Procedure Time: _1:00PM . Time changes happen often and if your time is changed the preop area will call you the afternoon before. - You and your visitor will be asked to self-screen and do not enter if you have any COVID symptoms. - Only one visitor is requested with a max of two and NO children visitors are allowed at this time. - The patient visitor may be requested to leave or wait in car when not with patient due to distancing restrictions. - A mask is optional within the hospital. Patients may have clear liquids (water, carbonated beverages, clear teas, apple juice) until 3 hours prior to surgery with a maximum of 20 ounces. - No food from midnight until time of surgery Take the following medications with a SIP of water the morning of surgery: ___METOPROLOL Medications to discontinue per physician ____ASPIRIN- START HOLDING AND ALL VITAMINS/SUPPLEMENTS- START HOLDING NOW Date to take last dose___06/19/22 Please no make-up, nail swiss, hairspray, perfume, deodorant, or body powder the day of surgery. No jewelry (including any body piercings) or valuables the day of surgery, leave them at home. Please take a shower or bath the night before, or the morning of, surgery with an antibacterial soap. Wear comfortable, loose fitting clothing. Children are encouraged to wear pajamas. - Jewelry must be removed prior to entering the operating room. Rings and piercings that are not removed may be cut off. - The hospital will not accept responsibility for valuables. - Please leave all valuables, including medications, at home the day of surgery. If you are going home after surgery, a licensed local company flatbed truck driver must drive you home. - NO public transportation without another adult if you receive anesthesia. - We recommend that an adult stay with you for 24 hours following discharge. - We also recommend that you do not drive, make important decision, drink alcoholic beverages, or take any drugs that were not prescribed by your health care provider for at least 24 hours after your discharge time. Follow any additional instructions given to you from your surgeon. If you or anyone in your household have experienced Covid symptoms in the past week, please notify your surgeon or the nurse liaison at the phone number below for possible testing. Telephone instructions given to __PATIENT and asked if any additional questions and then verbalized understanding. Patient advised to call surgeon office or pre surgery nurse liaison [phone] if any additional questions.
[2022-06-22] VITALS (8 sets, daily range): BP systolic 113–130; BP diastolic 70–77; PULSE 57–68; RESP 12–16; TEMP 36.1–36.6; O2SAT 98–100
--- NOTE | ~2022-06-22 | XR_ITS ---
EXAMINATION: XR abdomen/kub 1V INDICATION: Lithotripsy TECHNIQUE: Supine views of the abdomen were obtained on 2 radiographs. COMPARISON: 05/22/2022 FINDINGS: The previously described right distal ureteral stone is no longer evident, consistent with history of lithotripsy. There is a phlebolith of the left pelvis. Surgical changes are noted in the u pper abdomen. There are no dilated loops of bowel. There is a small right pleural effusion. IMPRESSION: 1. Previously described right distal ureteral stone no longer identified, consistent with interval li thotripsy. Reviewed, dictated and finalized at location A. DEPARTMENT SUPERVISOR IMPRESSION: 1. Previously described right distal ureteral stone no longer identified, consi stent with interval lithotripsy.
--- NOTE | 2022-06-22 06:33 | WPDHPUPDATE1 ---
History and Physical Update Update Date/Time: 06/22/22 06:33 History and Physical has been reviewed, including an updated exam of the patient. There are NO changes in the patient's condition. Risks, benefits, and alternatives have been discussed and questions answered. Patient agrees to proceed with procedure.
[2022-06-22] MEDS: LACTATED RINGERS 1,000 ML 30 ML IV CONT (11:40)
--- NOTE | 2022-06-22 12:34 | SUR.PREOP ---
Discussed delay with patient. Voiced understanding.
--- NOTE | 2022-06-22 13:15 | WPDANESEPPF ---
Anes - Initial Pre Proc Eval Procedure: Operation Date: 06/22/22 13:00 Proposed Procedures p Left Extracorporeal Shock Wave Lithotripsy - John Barry MD s Possible Cystoscopy, Possible Left Retrograde Pyelogram - John Barry MD Date/Time: 06/22/22 13:15 Surgeon: John Barry MD Pre Op Diagnosis: left Ureteral Stone Patient Data Age: 71 Gender: M Height: 1.75 m Weight: 75.6 kg Last Vital Signs Temp 97.9 F 06/22/22 11:22 Pulse 60 06/22/22 11:22 Resp 16 06/22/22 11:22 BP 118/70 06/22/22 11:22 Pulse Ox 98 06/22/22 11:22 O2 Del Method Room Air 06/22/22 11:22 Allergies Allergy/AdvReac Type Severity Reaction Status Date / Time No Known Allergies Allergy Verified 06/22/22 11:11 Home Medications Medication Instructions Recorded Confirmed Type atorvastatin 20 mg tablet 30 mg PO HS 02/28/21 06/22/22 History metoprolol succinate 25 mg 25 mg PO QAM 02/28/21 06/22/22 History tablet,extended release 24 hr quinapril 20 mg tablet 10 mg PO QAM 02/28/21 06/22/22 History aspirin 81 mg tablet 81 mg PO DAILY 05/23/21 06/22/22 History lysine 500 mg capsule 1,000 mg PO DAILY 05/23/21 06/22/22 History multivitamin with minerals-folic 1 tablet PO DAILY 05/23/21 06/22/22 History acid 200 mcg chewable tablet (Adult Multivitamin Gummies) omega 1-rnw-xxo-fish oil 1,000 mg 10,000 cap PO DAILY 05/23/21 06/22/22 History (120 mg-180 mg) capsule (Fish Oil) calcium carbonate 600 mg-vitamin 1 tablet PO DAILY 05/25/22 06/22/22 History D3 5 mcg (200 unit) tablet maggi seed oil-omega 3-6-9 1,000 mg 1 cap PO DAILY 05/25/22 06/22/22 History (580 mg) capsule cholecalciferol (vitamin D3) 50 50 mcg PO DAILY 05/25/22 06/22/22 History mcg/drop (2,000 unit/drop) oral drops coenzyme Q10 100 mg capsule 200 mg PO DAILY 05/25/22 06/22/22 History (CoQ-10) psyllium husk-calcium 1 gram-60 mg 2 cap PO DAILY 05/25/22 06/22/22 History capsule ferrous sulfate 324 mg (65 mg 324 mg PO DAILY 06/19/22 06/22/22 History iron) tablet,delayed release Patient hx anesthesia problems: none Family hx anesthesia problems: none Results Review: All pre-operative results and documents have been reviewed as part of the pre-operative evaluation. [facility] Past Medical History Medical History (Updated 05/26/22 @ 14:11 by John Barry MD) CAD (coronary artery disease) Esophageal cancer Hyperlipidemia Hypertension Surgical History Surgical History (Updated 05/25/22 @ 14:49 by Danny Peng MD) History of coronary artery stent placement Social History Social History Smoking status: Never smoker Second hand tobacco smoke exposure: No Alcohol intake: current Drinks per week: 2 Substance use: never Substance use type: does not use Living arrangements: alone Gender identity (if verbalized by the patient): Male Spiritual care concerns: No Anes - Eval Final PreProcedure Day of Procedure 06/22/22 13:15 Patient weight: normal Heart: regular rate and rhythm Lungs: clear to auscultation Airway: Mallampati scale class II Neurological: alert and oriented Last oral intake: >/= 8 hours ASA classification: III Emergent: no Anesthetic plan: proceed Anesthesia type and monitoring: general LMA and standard monitoring Results Review: All pre-operative results and documents have been reviewed as part of the pre-operative evaluation. Informed Consent: The patient's anesthetic plan and its attendant risks and benefits were discussed with the patient/family/POA. Questions were solicited and answers provided to the satisfaction of the patient/family/POA.
[2022-06-22] MEDS: ceFAZolin 2 GM/D5W 50 ML 2 GM/50 ML BAG IVPB (13:42)
--- NOTE | 2022-06-22 14:19 | P.OP_ITS ---
Procedure Note - Detailed Date of Procedure 06/22/22 Pre-op Diagnosis Left Renal Stone Post-op Diagnosis Same Procedure Performed Cystoscopy, left retrograde pyelography [facility]SW[facility] Surgeon John Barry MD Anesthesia General Description of Procedure patient brought to the operative suite he was prepped draped in routine sterile fashion supine position. We had 1st tried to localize his to 6 mm left renal calculus under fluoroscopy without reliable success. Therefore cystoscopy with left retrograde pyelography. Cystoscopy is undertaken with a 16 F flexible cystoscope there was no urethral stricture in very moderate prostatic hyperplasia. The was slightly trabeculated without other identifiable. 0.035 i n glidewire was advanced into his left renal pelvis and angiographic catheter was placed. Retrograde was obtained. He has a single mid pole calyx. Placed the focal point Lithotripter at that site delivered 2500 shocks at setting 4. Patient procedure well. Scope removed and he was taken to PACU in good condition. Drains No Packing No Pathology None sent Complications No immediate complications Condition Stable
--- NOTE | 2022-06-22 15:09 | SUR.PHASEI ---
1508: Simple mask removed.
== END 2022-06-22 16:15 | disposition home or self-care (01) ==
PROVIDERS: PCP Family Medicine; Visit Provider Urology
PROC: (CPT 50590; principal; 2022-06-22 13:00)
PROC: (CPT 52352; 2022-06-22 13:00)
DX: N20.0 Calculus of kidney (principal); I25.10 Atherosclerotic heart disease of native coronary artery without angina pectoris; I10 Essential (primary) hypertension; E78.5 Hyperlipidemia, unspecified; Z95.5 Presence of coronary angioplasty implant and graft; Z85.01 Personal history of malignant neoplasm of esophagus; Z79.82 Long term (current) use of aspirin
CPT/HCPCS: 50590; 36415; 74018; 80048; 85014; 85018; 85610; 85730; 87086; A9270; C1758; C1769; J0690; J1100; J2250; J2405; J2704; J3010; J7030; J7120

== ENCOUNTER 2022-12-27 07:22 | Outpatient (CLI) | payer MEDICARE, SELFPAY ==
--- NOTE | ~2022-12-27 | XR_ITS ---
XR abdomen/kub 1V 12/27/2022 07:40 Indication: Right ureteral stone Procedure: KUB Comparison: 06/22/2022 Findings: Bowel gas pattern is nonobstructive. There are clustered punctate radiodensities in the rig ht upper abdomen at the L1 level of uncertain significance. Cannot exclude right nephrolithiasis. Con media professional correlation with CT. No acute osseous abnormality. Impression: 1: Possible right nephrolithiasis. Consider correlation with CT. Reviewed, dictated and finalized at location [] Impression: 1: Possible right nephrolithiasis. Consider correlation with CT.
== END 2022-12-27 07:23 | disposition home or self-care (01) ==
PROVIDERS: PCP Family Medicine; Visit Provider Urology
DX: N20.1 Calculus of ureter (principal)
CPT/HCPCS: 74018

== ENCOUNTER 2025-03-23 08:12 | Emergency (ER) | payer MEDICARE, SELFPAY ==
[2025-03-23] VITALS (18 sets, daily range): BP systolic 109–131; BP diastolic 71–84; PULSE 56–74; RESP 12–20; TEMP 36.7; O2SAT 98–100
--- NOTE | ~2025-03-23 | XR_ITS ---
EXAMINATION: XR chest 2V, 03/23/2025 9:10 CDT HISTORY: Dizziness COMPARISON: No comparisons available. Technique: 2 views obtained. Findings: The lungs are clear, no effusion. No pneumothorax. Heart is normal size. Mediastinal and hilar contours are within normal limits. Bony thorax no acute abnormality. Impression: No acute cardiopulmonary abnormality. Reviewed, dictated and finalized at location A. Impression: No acute cardiopulmonary abnormality.
--- NOTE | 2025-03-23 08:17 | ECG_ITS ---
Test Date: 2025-03-23 08:24:09 Measurements Intervals [place] Rate: 61 P: 35 UT: 146 QRS: 12 QRSD: 112 T: 40 QT: 416 QTc: 422 Interpretive Statements SINUS RHYTHM SEPTAL MYOCARDIAL INFARCTION , OF INDETERMINATE AGE [40+ ms Q WAVE IN V1/V2] ABNORMAL ECG No previous ECG available for comparison Electronically Signed On 03-23-2025 11:15:46 CDT by Adelso Valencia M.D.
[2025-03-23 08:32] LABS: Hematocrit 43.2 % (42.0-52.0); Hemoglobin 13.7 g/dL (14.0-18.0); Immature Granulocyte Percent A 0.3 % (0-0.5); Lymphocytes Absolute Auto 1.55 K/mm3 (0.9-3.2); Mean Corpuscular HGB Conc 31.7 g/dl (32-36); Mean Corpuscular Hemoglobin 29.6 pg (26-34); Mean Corpuscular Volume 93.3 fl (80-100); Nucleated Red Blood Cells Absolute Auto 0.000 K/mm3 (0.0-0.012); Nucleated Red Blood Cells Perc 0.0 % (0.0-0.2); Platelet Count Result 216 k/mm3 (150-375); Red Blood Count 4.63 M/mm3 (4.6-6.20); White Blood Count 7.1 K/mm3 (4.5-10.0)
[2025-03-23 08:46] LABS: Alanine Aminotransferase 30 U/L (6-50); Albumin Level 4.1 g/dL (3.5-5.1); Alkaline Phosphatase 115 U/L (38-126); Anion Gap 6 mmol/L (4-12); Aspartate Amino Transferase 41 U/L (17-59); Bilirubin,Total 0.5 mg/dL (0.2-1.3); Blood Urea Nitrogen 20 mg/dL (9-20); Calcium 8.7 mg/dL (8.4-10.2); Carbon Dioxide 24 mmol/L (22-30); Chloride 106 mmol/L (98-107); Estimated CRCL calculation 57 ml/min; Estimated Glomerular Filt Rate > 60; Glucose 133 mg/dL (65-110); Lipase 108 U/L (23-300); Potassium 4.0 mmol/L (3.4-5.0); Sodium 136 mmol/L (137-145); Total Protein 7.3 g/dL (6.3-8.2)
[2025-03-23 08:48] LABS: INR 1.0; Prothrombin Time 13.4 Seconds (11.1-14.7)
[2025-03-23 08:49] LABS: Partial Thromboplastin Time 33.5 Seconds (22.3-36.8)
[2025-03-23 08:56] LABS: Troponin I < 0.012 ng/mL (0.000-0.034)
--- NOTE | 2025-03-23 09:23 | ED.GENADULT ---
HPI - General Adult General Chief complaint: Dizziness Stated complaint: Dizzy Time Seen by Provider: 03/23/25 08:51 History of Present Illness HPI narrative: Melvin Quan is a 74-year-old male who presents today with complaints of having about 30 minutes of feeling dizziness when he got up this morning. He states that it got better on its own he was able to shower through it and then he came to get checked to make sure his heart was okay. He thought maybe was related to his blood sugar because he has a history of hypoglycemic even so he did drink some sweet tea to try to help with blood sugar. He states that he never had any chest pain, palpitations, numbness, tingling tingling, vision changes, headache, shortness of breath. At this time he denies having any symptoms at all but he does want to be evaluated for. Related Data Home Medications ?Medication ?Instructions ?Recorded ?Confirmed ?Last Taken ?Type atorvastatin 20 mg tablet 30 mg PO HS 02/28/21 06/22/22 02/27/21 History metoprolol succinate 25 mg 25 mg PO [facility] 02/28/21 06/22/22 02/28/21 History tablet,extended release 24 hr quinapril 20 mg tablet 10 mg PO [facility] 02/28/21 06/22/22 02/28/21 History aspirin 81 mg tablet 81 mg PO DAILY 05/23/21 06/22/22 05/24/22 History Held on 06/22/22. Instructions: Resume on 06/24/22. lysine 500 mg capsule 1,000 mg PO DAILY 05/23/21 06/22/22 Unknown History Held on 06/22/22. Instructions: Resume on 06/24/22. multivitamin with minerals-folic 1 tablet PO DAILY 05/23/21 06/22/22 Unknown History acid 200 mcg chewable tablet (Adult Multivitamin Gummies) omega 8-hsy-kli-fish oil 1,000 mg 10,000 cap PO DAILY 05/23/21 06/22/22 05/24/22 History (120 mg-180 mg) capsule (Fish Oil) Held on 06/22/22. Instructions: Resume on 06/24/22. calcium 600 mg (as 1 tablet PO DAILY 05/25/22 06/22/22 Unknown History carbonate)-vitamin D3 5 mcg (200 unit) tablet maggi seed oil-omega 3-6-9 1,000 mg 1 cap PO DAILY 05/25/22 06/22/22 Unknown History (580 mg) capsule cholecalciferol (vitamin D3) 50 50 mcg PO DAILY 05/25/22 06/22/22 Unknown History mcg/drop (2,000 unit/drop) oral drops coenzyme Q10 100 mg capsule 200 mg PO DAILY 05/25/22 06/22/22 Unknown History (CoQ-10) psyllium husk-calcium 1 gram-60 mg 2 cap PO DAILY 05/25/22 06/22/22 Unknown History capsule ferrous sulfate 324 mg (65 mg 324 mg PO DAILY 06/19/22 06/22/22 Unknown History iron) tablet,delayed release Allergies Allergy/AdvReac Type Severity Reaction Status Date / Time No Known Allergies Allergy Verified 03/23/25 08:26 Review of Systems Review of Systems: All systems reviewed & are unremarkable except as noted in HPI and below PMFSH Past Medical History Medical History Esophageal cancer CAD (coronary artery disease) Hyperlipidemia Hypertension Surgical History Surgical History History of coronary artery stent placement Social History Social History Smoking status: Never smoker Second hand tobacco smoke exposure: No Alcohol intake: current Drinks per week: 2 Substance use: never Substance use type: does not use Living arrangements: alone Gender identity (if verbalized by the patient): Male Spiritual care concerns: No Exam Narrative: GENERAL: Well-appearing, well-nourished, and in no acute distress. HEAD: Normocephalic, atraumatic. EYES: PERRLA and EOMI. ENT: Nares clear, no rhinorrhea or epistaxis. Mucous membranes moist. Oropharynx without tonsillar hypertrophy exudate or other lesions. Bilateral TMs pearly puentes non bulging NECK: Supple. No adenopathy or masses. No carotid bruits or JVD CHEST: Clear to auscultation. No respiratory distress. No wheezes rales or rhonchi HEART: Regular rate and rhythm. No murmur heard. Normal peripheral pulses. ABDOMEN: Soft, nontender, nondistended, normal active bowel sounds. EXTREMITIES: Normal range of motion. No edema. SKIN: Warm, dry, no rash. NEURO: No focal deficits. Alert and oriented x3. PSYCH: Normal mood and affect. Course Vital Signs Vital signs: Vital Signs Temperature 36.7 C 03/23/25 08:20 Pulse Rate 67 03/23/25 08:20 Respiratory Rate 18 03/23/25 08:20 Blood Pressure 131/78 03/23/25 08:20 Pulse Oximetry 98 03/23/25 08:20 Oxygen Delivery Room Air 03/23/25 08:20 Temperature 36.7 C 03/23/25 08:20 Pulse Rate 60 03/23/25 10:48 Respiratory Rate 17 03/23/25 10:48 Blood Pressure 109/71 03/23/25 09:02 Pulse Oximetry 100 03/23/25 10:48 Oxygen Delivery Room Air 03/23/25 08:20 Medical Decision Making MDM Narrative Medical decision making narrative: 74-year-old male who presents with complaints of having an episode of the room spinning dizziness that lasted about 30 minutes. He states that he woke up around 7 and when he got up when he started to feel it improved on its own drinks some sweet he thinking maybe was blood sugar related. We even not have better he wanted to get checked to make sure was not cardiac related. On exam he is alert and oriented x4 there is no focal neural deficits noted pupils equal reactive TMs are pearly puentes and not obscured NIHSS scale is 0 Concern for: Vertigo, hypoglycemia, cardiac ischemia, URI, CBC is unremarkable PT PTT unremarkable, CMP sodium 136, glucose 133, 2- troponins stable EKG chest x-ray is negative lipase is negative patient has been here for several hours and has not had any recurrence of this room spinning that he had for about a 1/2 hour at 7 this morning. He was NPO since being here and reread checked a blood sugar prior to leaving and it was 103 and stable I discussed with patient that this he he was concerned being related to his heart and may have been able to rule out myocardial infarction. We encouraged him to follow up with his primary care doctor in the next week or so to ensure he is getting better and this has not returned. Provided with return precautions if he develops new or worsening symptoms to return to the emergency department. He and his both agree with this plan denied have any further questions at this time. Medical Records Medical records reviewed: Yes I reviewed the external patient's medical records. Vital Signs Vital Signs: Vital Signs Temperature 36.7 C 03/23/25 08:20 Pulse Rate 67 03/23/25 08:20 Respiratory Rate 18 03/23/25 08:20 Blood Pressure 131/78 03/23/25 08:20 Pulse Oximetry 98 03/23/25 08:20 Oxygen Delivery Room Air 03/23/25 08:20 Temperature 36.7 C 03/23/25 08:20 Pulse Rate 60 03/23/25 10:48 Respiratory Rate 17 03/23/25 10:48 Blood Pressure 109/71 03/23/25 09:02 Pulse Oximetry 100 03/23/25 10:48 Oxygen Delivery Room Air 03/23/25 08:20 Vitals reviewed by me Lab Data Lab results reviewed: Yes I reviewed the patient's lab results. 03/23/25 08:23 03/23/25 08:23 Labs: Lab Results 03/23/25 03/23/25 Range/Units 08:23 11:16 WBC 7.1 (4.5-10.0) K/mm3 RBC 4.63 (4.6-6.20) M/mm3 Hgb 13.7 L (14.0-18.0) g/dL Hct 43.2 (42.0-52.0) % MCV 93.3 (80-100) fl MCH 29.6 (26-34) pg MCHC 31.7 L (32-36) g/dl RDW 13.1 (11.5-14.5) % Plt Count 216 (150-375) k/mm3 MPV 10.8 H (7.4-10.4) fl Immature Gran % (Auto) 0.3 (0-0.5) % Neut % (Auto) 65.1 (45.5-73.1) % Lymph % (Auto) 22.0 (18.3-44.2) % Towner % (Auto) 8.8 H (2.6-8.5) % Eos % (Auto) 2.8 (0-4.4) % Baso % (Auto) 1.0 (0.2-1.2) % Lymph # (Auto) 1.55 (0.9-3.2) K/mm3 Towner # (Auto) 0.6 (0.1-0.6) K/mm3 Eos # (Auto) 0.2 (0-0.3) K/mm3 Baso # (Auto) 0.1 (0.0-0.1) K/mm3 Abs Immat Gran (auto) 0.02 (0.00-0.031) K/mm3 Absolute Neuts (auto) 4.6 (1.3-6.7) K/mm3 Absolute Nucleated RBC 0.000 (0.0-0.012) K/mm3 Nucleated RBC % 0.0 (0.0-0.2) % PT 13.4 (11.1-14.7) Seconds INR 1.0 APTT 33.5 (22.3-36.8) Seconds Sodium 136 L (137-145) mmol/L Potassium 4.0 (3.4-5.0) mmol/L Chloride 106 (98-107) mmol/L Carbon Dioxide 24 (22-30) mmol/L Anion Gap 6 (4-12) mmol/L BUN 20 (9-20) mg/dL Creatinine 1.01 (0.7-1.3) mg/dL Estim Creat Clear Calc 57 ml/min Estimated GFR > 60 (59 - ) Glucose 133 H (65-110) mg/dL Calcium 8.7 (8.4-10.2) mg/dL Total Bilirubin 0.5 (0.2-1.3) mg/dL AST 41 (17-59) U/L ALT 30 (6-50) U/L Alkaline Phosphatase 115 (38-126) U/L Troponin I < 0.012 < 0.012 (0.000-0.034) ng/mL Total Protein 7.3 (6.3-8.2) g/dL Albumin 4.1 (3.5-5.1) g/dL Lipase 108 (23-300) U/L Discharge Plan Discharge Clinical Impression: Dizziness, Vertigo Patient Disposition: Home Condition: Stable Instructions: Antibiotic Form Additional Instructions: Continue to take your home medications as prescribed keep a close eye on your blood sugar as use today is sometimes you noticed it get lower and be symptomatic with this. What you fell earlier today could have been related to vertigo. Your workup here today is stable blood sugar has been stable. Please call to follow-up with your primary care doctor in the next week for further evaluation regarding your vertigo episode. If he should develop any new or worsening symptoms otherwise return to the emergency department. Patient Language: Turkish Prescriptions: No Action atorvastatin 20 mg tablet 30 mg PO HS quinapril 20 mg tablet 10 mg PO QAM Patient Comments: QAM metoprolol succinate 25 mg tablet extended release 24 hr 25 mg PO QAM Patient Comments: QAM lysine 500 mg Capsule 1,000 mg PO DAILY aspirin 81 mg Tablet 81 mg PO DAILY omega 6-fcg-oma-fish oil [Fish Oil] 1,000 mg (120 mg-180 mg) Capsule 10,000 cap PO DAILY Adult Multivitamin Gummies 200 mcg Tablet,Chewable 1 tablet PO DAILY calcium carbonate-vitamin D3 600 mg-5 mcg (200 unit) Tablet 1 tablet PO DAILY coenzyme Q10 [CoQ-10] 100 mg Capsule 200 mg PO DAILY psyllium husk-calcium 1-60 gram-mg Capsule 2 cap PO DAILY Rx Instructions: administer with large glass of water cholecalciferol (vitamin D3) 50 mcg/drop (2, 000 unit/drop) Drops 50 mcg PO DAILY maggi seed oil-omega 3-6-9 1,000 mg (580 mg) Capsule 1 cap PO DAILY ferrous sulfate 324 mg (65 mg iron) Tablet,Delayed Release (Dr/Ec) 324 mg PO DAILY hydrocodone-acetaminophen 5-325 mg tablet 1 - 2 tablet PO Q6H PRN (Reason: pain) Qty: 20 0RF cephalexin 500 mg capsule 500 mg PO Q8H Qty: 9 0RF Follow-up/Referrals: Romulo Anand MD [Primary Care Provider, Internal Medicine] - 1 Week Time of Disposition: 12:33
--- NOTE | 2025-03-23 10:59 | ECG_ITS ---
Test Date: 2025-03-23 11:17:25 Measurements Intervals [place] Rate: 59 P: 54 [place]: 171 QRS: 6 QRSD: 102 T: 28 QT: 417 QTc: 414 Interpretive Statements SINUS BRADYCARDIA SEPTAL MYOCARDIAL INFARCTION , OF INDETERMINATE AGE [40+ ms Q WAVE IN V1/V2] ABNORMAL ECG Compared to ECG 03/23/2025 08:24:09 Sinus rhythm no longer present Myocardial infarct finding still present Electronically Signed On 03-23-2025 11:19:45 CDT by Adelso Valencia M.D.
[2025-03-23 11:51] LABS: Troponin I < 0.012 ng/mL (0.000-0.034)
== END 2025-03-23 12:50 | disposition home or self-care (01) ==
PROVIDERS: Student in an Organized Health Care Education/Training Program; Emergency Provider Nurse Practitioner Family; PCP Family Medicine
DX: R42 Dizziness and giddiness (principal); I25.10 Atherosclerotic heart disease of native coronary artery without angina pectoris; E78.5 Hyperlipidemia, unspecified; I10 Essential (primary) hypertension
CPT/HCPCS: 36415; 71046; 80053; 82948; 83690; 84484; 85025; 85610; 85730; 93005; 99284

== ENCOUNTER 2025-04-09 10:10 | Outpatient (CLI) | payer MEDICARE, SELFPAY ==
--- NOTE | ~2025-04-09 | XR_ITS ---
XR abdomen/kub 1V 04/09/2025 10:22 INDICATION: Right ureteral stone TECHNIQUE: KUB COMPARISON: Comparison to multiple prior studies sequentially, with oldest reviewed study dated 05/18/2022. FINDINGS: Bowel gas pattern is normal. There is no evidence of free air, mass, organomegaly, ascites or obstruction. No abnormal calculi are seen. The bones appear intact. There is a left pelvic phlebolith. IMPRESSION: 1: No acute abdominal abnormality identified. Reviewed, dictated and finalized at location C.
--- OUTSIDE RECORDS SUMMARY | 2025-04-09 10:47 | XMS_ITS | Encounter Summary ---
Author Organization [facility] Address [facility] [place] [address] Care Team Providers Care Grocery Clerk Selling Name Role Phone Romulo Anand MD Primary Care Provider [phone] Demetrio Rios MD Unavailable [phone] Ashlee Herrera APRN, VP BUSINESS DEVELOPMENT-C Unavailable Alhaji Gusman MD Unavailable [phone] Junior Madsen MD Unavailable [phone] [facility]- Unavailable [phone] Encounter Details Date Type Department Care Team (Late st Contact Info) Description 09/22/2017 Abstract [facility] CONVERSION [address] [place] [address] , Generic Conversion, Social History Tobacco Use Types Packs/Day Years Used Date Smoking Tobacco: Former Cigarettes Q uit: 1980 Smokeless Tobacco: Never Alcohol Use Standard Drinks/Week Comments Yes 0 (1 standard drink = 0.6 oz pur e alcohol) social Sex and Gender Information Value Date Recorded Sex Assigned at Not on file Legal Sex Male 9:31 AM CDT Gender Identity Not on file Sexual Orientation Not on file Occupation Industry Job Start Date Job End Date Not on file Not on file Not on file Not on file documented as of this encounter Plan of Treatment Upcoming Encounters Date Type Department Care Team (Late Contact Info) Description 04/22/2025 11:30 AM CDT Office Visit [facility] [address] [place] [phone] Aidee Claudio, ANP-BC [address] [place] [address] documented as of this encounter Visit Diagnoses Not on filedocumented in this encounter Care Teams Grocery Clerk Selling Relationship Specialty Start Date End Date Romulo Anand MD [address] [place] [address] PCP - General FAMILY PRACTICE 03/26/17 Demetrio Rios MD [address] [place] [address] [employer] Line Worker CARDIOVASCULAR DISEASE 03/26/17 11/01/23 Ashlee Herrera APRN, VP BUSINESS DEVELOPMENT-C [address] [facility] [address] [place] [address] [employer] Line Worker NURSE PRACTITIONER 03/26/17 11/01/23 Alhaji Gusman MD [address] [place] [phone] Surgeon SURGERY 02/10/22 Junior Madsen MD [address] [place] [phone] INTERVENTIONAL CARDIOLOGY 11/02/23 Aidee Claudio, ANP-BC [address] [place] [id number] Nurse Practitioner NURSE PRACTITIONER ADULT HEALTH 11/02/23 documented as of this encounter
--- OUTSIDE RECORDS SUMMARY | 2025-04-09 10:47 | XMS_ITS | Clinical Summary ---
Author Organization [facility] Address [address] [place] [address] Care Team Providers Care Lead Coater Name Role Phone Romulo Anand MD Primary Care Provider [phone] Alhaji Gusman MD Unavailable [phone] Junior Madsen MD Unavailable [phone] Aidee Claudio [facility]- Unavailable [phone] Allergies No known active allergies Medications multivitamin tablet Take 1 tablet by mouth daily. Active Lysine HCl 1000 MG Tab Take 1 tablet by mouth daily. Active calcium carb-cholecalci ferol 600-800 MG-UNIT tablet Take 1 tablet by mouth daily. Active FIBER OR Take 3 capsules by mouth daily. Active ferrous sulfate 325 (65 FE) MG tablet Take 1 tablet (325 mg total) by mouth daily with breakfast. Active Ruby-3 Fatty Acids (OMEGA-3 FISH OIL) 300 MG Cap Take 1 tablet by mouth daily. Active PJ SEED OR 3 tsp daily Activ e vitamin D3, cholecalciferol , 1000 UNIT Tab tablet Take 1 tablet (25 mcg total) by mouth daily. Active nitroGLYCERIN 0.4 MG SL tablet DISSOLVE 1 TABLET UNDER TONGUE EVERY 5 MINUTES NEEDED FOR CHEST PAIN 0 7 Active diphenhydrAMINE 25 MG tablet Take 1 tablet (25 mg total) by mouth as needed for Itching. Active aspirin EC 81 MG tablet Take 1 tablet (81 mg total) by mouth daily. Active metoprolol succinate ER 25 MG 24 hr tablet Take 1 tablet (25 mg total) by mouth daily. 30 tablet 0 Active atorvastatin 20 MG tablet Take 1.5 tablets (30 mg total) by mouth nightly. 135 tablet 3 0 Active Additional Information Patient taking differently: 40 mgOral Nightly, Reported on 01/11/2023 sildenafil 100 MG tablet as needed. 1 Active Coenzyme Q10 200 MG Tab Take 1 tablet by mouth daily. Active lisinopril (PRINIVIL) 10 MG tablet Take 1 tablet (10 mg total) by mouth daily. Active Active Problems Problem Noted Date Diagnosed Date S/P drug eluting coronary stent placement 2016 Chest pain 04/01/2017 Retinal embolus, right eye Hypertension Hyperlipidemia GERD (gastroesophageal reflux disease) Erectile dysfunction Coronary artery disease Esophageal cancer ([facility]) Resolved Problems Problem Noted Date Diagnosed Date Resolved Date Abnormal nuclear stress test 04/01/2017 04/09/2017 Family History Relation Status Comments Brother 1 Alive Brother 2 Alive Father Maternal Grandfather Maternal Grandmother heart Mother angio, bypass, c hf Paternal Grandfather Paternal Grandmother Sister Social History Tobacco Use Types Packs/Day Years [...] file Not on file Not on file Last Filed Vital Signs Vital Sign Reading Time Taken Comments Blood Pressure 122/72 03/12/2024 10:16 AM CDT Pulse 71 03/12/2024 10:16 AM CDT Temperature 36.9 C (98.4 F) 12/11/2019 10:59 AM CDT Respiratory Rate 14 03/12/2024 10:16 AM CDT Oxygen Saturation 99% 03/12/2024 10:16 AM CDT Inhaled Oxygen Concentration - - Weight 72.3 kg (159 lb 6.4 oz) 03/12/2024 10:16 AM CDT Height 177.8 cm (5' 10) 03/12/2024 10:16 AM CDT Body Mass Index 22.87 03/12/2024 10:16 AM CDT Plan of Treatment Upcoming Encounters Date Type Department Care Team (Late st Contact Info) Description 04/22/2025 11:30 AM CDT Office Visit [facility] [place] [address] Aidee Claudio, ANP- [address] [place] [address] Health Maintenance Due Date Last Done Comments ASCVD Statin 1950 Colorectal Cancer Screening Colonoscopy (10 Years) 1950 Hepatitis C 1968 Zoster Vaccines (1 of 2) 2000 RSV Immunization or 60+ Years (1 - Risk 60-74 years 1-dose series) 2010 AAA SCREENING 11/11/2015 Annual Medicare Wellness Visit 11/11/2015 Pneumococcal Vaccine: 50+ Years (2 of 2 - PPSV23) 05/08/2017 03/13/2017 DTaP, Tdap and Td Vaccines (2 - Td or Tdap) 03/18/2023 03/18/2013 ASCVD LDL 2023 11/09/2022, 11/07, 12/02/2020, Additional history exists COVID-19 Vaccine ( season) 2025 Meningococcal B Vaccine Aged Out No l onger eligible based on patient's age to complete this topic Meningococcal Vaccine Aged Out No johnson charito eligible based on patient's age to complete this topic RSV Immunizations Under 20 Months Aged Out No longer eligible based on patient's age to complete this topic Procedures Procedure Name Priority Date/Time Associated Diagnosis Comments LIPID PANEL Routine 11/09/2022 from Last 3 Months or Most Recently Relevant to Health Maintenance Results * LIPID PANEL (11/09/2022) CHOLESTEROL 143 <200 HDL 52 > or= 40 TRIGLYCERIDES 76 <150 NON HDL CHOLESTEROL 91 <130 CHOL/HDL RATIO 2.8 <5.0 LDL (CALCULATED) 75 <100 11/09/2022 us Default History Genericprovider LABORATORY Final Result from Last 3 Months or Most Recently Relevant to Health Maintenance Insurance Care Teams Lead Coater Relationship Specialty Start Date End Date Romulo Anand MD [address] [place] [address] PCP - General FAMILY PRACTICE 03/26/17 Alhaji Gusmna MD [address] [place] [id number] Surgeon SURGERY 02/10/22 Junior Madsen MD [address] [place] [address] INTERVENTIONAL CARDIOLOGY 11/02/23 Aidee Claudio [facility] [address] [place] [id number] Nurse Practitioner NURSE PRACTITIONER ADULT HEALTH 11/02/23
--- OUTSIDE RECORDS SUMMARY | 2025-04-09 10:47 | XMS_ITS | Encounter Summary ---
Author Organization [facility] Address [address] [place] [address] Care Team Providers Care Steam Engineer Name Role Phone Romulo Anand MD Primary Care Provider [phone] Demetrio Rios MD Unavailable Ashlee Herrera APRN, SNOW PLOW TRACTOR OPERATOR-C Unavailable Alhaji Gusman MD Unavailable [phone] Junior Madsen MD Unavailable [phone] Aidee Claudio ANP-BC Unavailable [phone] Encounter Details Date Type Department Care Team (Late st Contact Info) Description 12/30/2021 [facility] [address] [place] [address] Ashlee Herrera, JANNIE, SNOW PLOW TRACTOR OPERATOR-C [address] [facility] [address] [place] [phone] Social History Tobacco Use Types Packs/Day Years [...] file Not on file Not on file COVID-19 Exposure Response Date Recorded In the last 10 days, have dyllan houser been in contact with someone who was confirmed or suspected to have Coronavirus/COVID-19? No / Unsure 12/28/2021 9:59 AM CDT documented as of this encounter Plan of Treatment Upcoming Encounters Date Type Department Care Team (Late st Contact Info) Description 04/22/2025 11:30 AM CDT Office Visit [facility] [address] [place] [phone] Aidee Claudio, [facility]- [address] [place], [place] [phone] documented as of this encounter Procedures Procedure Name Priority Date/Time Associated Diagnosis Comments CBC (OUTSIDE LAB) Routine 11/09/2022 BASIC METABOLIC PANEL Routine 11/09/2022 LIPID PANEL Routine 11/09/2022 LIPID PANEL Routine 12/03/2020 documented in this encounter Results * CBC (OUTSIDE LAB) (11/09/2022) WBC 7.2 3.8 - 10.8 HGB 13.7 13.2 - 17.1 HCT 42.0 38.5 - 50.0 PLT 240 140 - 400 RBC 4.70 4.20 - 5.80 11/09/2022 us Default History Genericprovider LAB-OUTSIDE/ABST RACTED Final Result * BASIC METABOLIC PANEL (11/09/2022) SODIUM S/P/B 137 135 - 146 POTASSIUM S/P/B 4.4 3.5 - 5.3 CO2 26 20 - 32 CHLORIDE S/P/B 103 98 - 110 GLUCOSE 105 65 - 99 mg/dL CALCIUM S/P/B 9.4 8.6 - 10.3 BUN 19 7 - 25 CREATININE S/P/B 1.07 0.7 - 1.28 EGFR NON-AFR. AMER. 74 <=90 11/09/2022 us Default History Genericprovider LABORATORY Final Result * LIPID PANEL (11/09/2022) CHOLESTEROL 143 <200 HDL 52 > or= 40 TRIGLYCERIDES 76 <150 NON HDL CHOLESTEROL 91 <130 CHOL/HDL RATIO 2.8 <5.0 LDL (CALCULATED) 75 <100 11/09/2022 us Default History Genericprovider LABORATORY Final Result * LIPID PANEL (12/03/2020) CHOLESTEROL 142 <200 HDL 53 >=40 TRIGLYCERIDES 85 <150 NON HDL CHOLESTEROL 89 <130 CHOL/HDL RATIO 2.7 <5.0 LDL (CALCULATED) 72 12/03/2020 us Doc [facility] LABORATORY Final Result documented in this encounter Visit Diagnoses Not on filedocumented in this encounter Care Teams Steam Engineer Relationship Specialty Start Date End Date Romulo Anand MD [address] [place] [address] PCP - General FAMILY PRACTICE 03/26/17 Demetrio Rios MD [address] [place] [address] [place] Building Construction Superintendent CARDIOVASCULAR DISEASE 03/26/17 11/01/23 Ashlee Herrera APRN, SNOW PLOW TRACTOR OPERATOR-C [address] [place] [address] [address] [place] [phone] [place] Building Construction Superintendent NURSE PRACTITIONER 03/26/17 11/01/23 Alhaji Gusman MD [address] [place] [phone] Surgeon SURGERY 02/10/22 Junior Madsen MD [address] [place] [phone] INTERVENTIONAL CARDIOLOGY 11/02/23 Aidee Claudio, [facility]- [address] [place] [id number] Nurse Practitioner NURSE PRACTITIONER ADULT HEALTH 11/02/23 documented as of this encounter
== END 2025-04-09 10:11 | disposition home or self-care (01) ==
PROVIDERS: PCP Family Medicine; Visit Provider Urology
DX: N20.1 Calculus of ureter (principal)
CPT/HCPCS: 74018